=== PATIENT | male | born 1945 | race Caucasian/White ===

== ENCOUNTER 2017-03-23 17:22 | Inpatient (IN) | payer MEDICARE, OTHER ==
[~2017-03-23] VITALS: Ht 182.9 cm; Wt 123.3 kg
[~2017-03-23 17:22] MED LIST: ACET325 PO; ACTOS; ALBU90OI6 INH; AMLO5; AMLO5 PO; ASCO500; ASPI325 PO; ASPI81CH; ASPI81EC; ASPI81EC PO; ATEN50; ATOR10; AZIT250 PO; BENZ100A PO; BISOPROLOL 2.5 MG; BUME2 PO; BUPR150T2; CEFD300 PO; CEPH500 PO; CHOL10002 PO; CLOP75 PO; DOCU100; DOCU100 PO; DULO60 PO; ENAL10; ESOM20; FISH OIL 1,001000 MG PO; FISH1000 PO; FLUSAL2505; FLUSAL2505 INH; FURO40; FURO80; GABA100; GABA300; GABA400 PO; GABA800 PO; GUAI600T33 PO; HYDACE10B PO; HYDMOR8 PO; HYDROCODONE-CHLO5 ML PO; INS70/30I; INSR10I; INSULANI; INSULANI SUBQ; INSULANPEN SQ; IRON PO; Iron Supplemen325 MG PO; Isosorbide Mono60 MG PO; LACT10SY; LAVAP17G PO; LOSA25 MT; LOSA50 PO; LOVA20; LOVA20 PO; Lovastatin20 MG PO; METO100ER PO; METO50 PO; MORP15ER PO; MSM1000; NAPR220; NITR.4SL SL; Novolin R100 UNIT/M SC; OXYACE5T; OXYACE5T PO; OXYGEN; POTASSIUM CHLORIDE 10 MEQ; PRED20 PO; PSYL5.85P; QUIN200; RENAPLEX; TELM20 PO; TELM40; TEMA15; TIOT18; Ventolin Soln3 ML INH
[2017-03-23 18:16] LABS: BASOPHILS ABSOLUTE AUTO 0.03 K/mm3 (0.00-0.23); BASOPHILS PERCENT AUTO 0 % (0-2); EOSINOPHILS ABSOLUTE AUTO 0.08 K/mm3 (0.00-0.68); EOSINOPHILS PERCENT AUTO 0 % (0-6); Hematocrit 35.5 % (37.0-53.0); Hemoglobin 11.5 g/dL (13.5-17.5); IMMATURE GRAN ABSOLUTE AUTO 0.11 K/mm3 (0.00-0.10); IMMATURE GRAN PERCENT AUTO 1 % (0-1); LYMPHOCYTES ABSOLUTE AUTO 1.62 K/mm3 (0.84-5.20); LYMPHOCYTES PERCENT AUTO 8 % (21-46); MONOCYTES ABSOLUTE AUTO 1.54 K/mm3 (0.16-1.47); MONOCYTES PERCENT AUTO 8 % (4-13); Mean Corpuscular HGB 31.1 pg (26.0-34.0); Mean Corpuscular HGB Conc 32.4 g/dL (31.5-36.5); Mean Corpuscular Volume 96 fL (80-100); NEUTROPHILS ABSOLUTE AUTO 15.83 K/mm3 (1.96-9.15); NEUTROPHILS PERCENT AUTO 82 % (41-73); Platelet Count 150 K/mm3 (150-400); RDW Coefficient Variation 15.4 % (11.7-14.2); RDW Standard Deviation 54.7 fL (35.1-46.3); White Blood Cell Count 19.21 K/mm3 (4.00-11.30)
[2017-03-23 18:38] LABS: Albumin, Blood 3.1 g/dL (3.4-5.0); Albumin/Globulin Ratio 0.8 (0.8-1.8); Bilirubin, Total 0.5 mg/dL (0.1-1.0); Bun/Creatinine Ratio 38.8 (12.0-20.0); Calcium, Blood 8.4 mg/dL (8.5-10.1); Creatinine, Blood 1.52 mg/dL (0.60-1.20); Globulin, Blood 4.1 g/dL (2.2-4.0); Potassium, Blood 5.6 mmol/L (3.5-5.5); Total Protein, Blood 7.2 g/dL (6.4-8.2); Troponin I 0.046 ng/mL (0.000-0.040)
[2017-03-23 18:41] LABS: International Normalized Ratio 1.03; Prothrombin Time Results 10.7 Sec (9.7-11.5)
[2017-03-23] MEDS ORDERED: BUME2 PO (19:08)
[2017-03-23 19:39] LABS: Influenza A Negative (NEGATIVE); Influenza B Negative (NEGATIVE)
[2017-03-23 21:52] LABS: Source, Urine Clean Catch
[2017-03-23 21:54] LABS: Bilirubin, Urine Neg (Neg); Blood, Urine 1+ (Neg); Glucose Qualitative, Urine 1+ (Neg); Ketones, Urine Neg (Neg); Leukocyte Esterase, Urine Neg (Neg); Nitrite, Urine Neg (Neg); Protein, Urine 2+ (Neg); Urobilinogen, Urine NORM (Normal)
[2017-03-23 22:05] LABS: Appearance, Urine Clear (Clear); Bacteria Few /hpf; Color, Urine Yellow (P-Yellow); Red Blood Cells, Urine 0-2 /hpf (0-2); Squamous Epithelial Cells Not Seen /hpf (Few); White Blood Cells, Urine 0-2 /hpf (0-5)
[2017-03-23 22:06] LABS: Hyaline Casts 0-2 /lpf (0-2)
[2017-03-24 00:38] LABS: BASOPHILS ABSOLUTE AUTO 0.04 K/mm3 (0.00-0.23); BASOPHILS PERCENT AUTO 0 % (0-2); EOSINOPHILS ABSOLUTE AUTO 0.04 K/mm3 (0.00-0.68); EOSINOPHILS PERCENT AUTO 0 % (0-6); Hematocrit 33.1 % (37.0-53.0); Hemoglobin 10.7 g/dL (13.5-17.5); IMMATURE GRAN ABSOLUTE AUTO 0.13 K/mm3 (0.00-0.10); IMMATURE GRAN PERCENT AUTO 1 % (0-1); LYMPHOCYTES ABSOLUTE AUTO 1.63 K/mm3 (0.84-5.20); LYMPHOCYTES PERCENT AUTO 10 % (21-46); MONOCYTES PERCENT AUTO 7 % (4-13); Mean Corpuscular HGB Conc 32.3 g/dL (31.5-36.5); Mean Corpuscular Volume 96 fL (80-100); Mean Platelet Volume 11.3 fL (9.1-12.4); NEUTROPHILS ABSOLUTE AUTO 13.84 K/mm3 (1.96-9.15); NEUTROPHILS PERCENT AUTO 82 % (41-73); Platelet Count 133 K/mm3 (150-400); RDW Coefficient Variation 15.3 % (11.7-14.2); RDW Standard Deviation 53.8 fL (35.1-46.3); Red Blood Cell Count 3.45 M/mm3 (4.30-5.90); White Blood Cell Count 16.88 K/mm3 (4.00-11.30)
[2017-03-24 00:57] LABS: Bun/Creatinine Ratio 41.8 (12.0-20.0); Calcium, Blood 8.3 mg/dL (8.5-10.1); Creatinine, Blood 1.41 mg/dL (0.60-1.20); Potassium, Blood 4.5 mmol/L (3.5-5.5)
[2017-03-25 04:20] LABS: Magnesium, Blood 2.4 mg/dL (1.6-2.4)
[2017-03-25 04:22] LABS: Bun/Creatinine Ratio 42.4 (12.0-20.0); Calcium, Blood 8.7 mg/dL (8.5-10.1); Creatinine, Blood 1.32 mg/dL (0.60-1.20); Potassium, Blood 4.3 mmol/L (3.5-5.5)
[2017-03-26 05:48] LABS: Anion Gap 8 mmol/L (6-16); Blood Urea Nitrogen 57 mg/dL (8-24); Bun/Creatinine Ratio 51.4 (12.0-20.0); CO2, Blood 29 mmol/L (21-32); Chloride, Blood 99 mmol/L (98-108); Creatinine, Blood 1.11 mg/dL (0.60-1.20); Glomerular Filtration Rate >60 (60-); Glucose, Blood 183 mg/dL (70-99); Potassium, Blood 4.5 mmol/L (3.5-5.5); Sodium, Blood 136 mmol/L (136-145)
[2017-03-26] MEDS ORDERED: DULERA 200 MCG/13 GM INH (10:16)
[2017-03-26] MEDS ORDERED: Ferrous Sulfat325 M2 PO (10:46)
[2017-03-26] MEDS ORDERED: ALBU90OI INH (10:50)
[2017-03-26] MEDS ORDERED: NICO21TP TOP (10:52)
[2017-03-26] MEDS ORDERED: PRED10 PO (10:54)
[2017-03-26] MEDS ORDERED: TIOT18 INH (10:55)
[2017-03-26] MEDS ORDERED: LEVO750 PO (10:55)
== END 2017-03-26 12:02 | disposition home or self-care (01) | DRG 189 ==
LOC: ER 17:22 → PCU 20:12 → MEDS 20:12 → PCU 21:21 → MEDS 03-25 16:41
PROVIDERS: Emergency Medicine; Family Medicine; Internal Medicine
PROC: 5A09457 Assistance with Respiratory Ventilation, 24-96 Consecutive Hours, Continuous Positive Airway Pressure (ICD-10-PCS; principal; 2017-03-23)
DX: J96.21 Acute and chronic respiratory failure with hypoxia (principal); N17.9 Acute kidney failure, unspecified; J18.9 Pneumonia, unspecified organism; I13.0 Hypertensive heart and chronic kidney disease with heart failure and stage 1 through stage 4 chronic kidney disease, or unspecified chronic kidney disease; I50.32 Chronic diastolic (congestive) heart failure; E11.65 Type 2 diabetes mellitus with hyperglycemia; E87.5 Hyperkalemia; E87.1 Hypo-osmolality and hyponatremia; J44.0 Chronic obstructive pulmonary disease with (acute) lower respiratory infection; J44.1 Chronic obstructive pulmonary disease with (acute) exacerbation; D63.1 Anemia in chronic kidney disease; D72.829 Elevated white blood cell count, unspecified; E78.5 Hyperlipidemia, unspecified; F17.210 Nicotine dependence, cigarettes, uncomplicated; F32.9 Major depressive disorder, single episode, unspecified; F41.8 Other specified anxiety disorders; G47.33 Obstructive sleep apnea (adult) (pediatric); I65.29 Occlusion and stenosis of unspecified carotid artery; N18.3 Chronic kidney disease, stage 3 (moderate); R74.8 Abnormal levels of other serum enzymes; Z79.4 Long term (current) use of insulin; Z79.52 Long term (current) use of systemic steroids; Z95.1 Presence of aortocoronary bypass graft
CPT/HCPCS: 36415; 71046; 80048; 80053; 81001; 82947; 83036; 83605; 83735; 83880; 84484; 85025; 85610; 85730; 87040; 87070; 87077; 87086; 87186; 87205; 87804; 93005; 93010; 93306; 93970; 94640; 94644; 94761; 94762; 96374; 96375; 97116; 97161; 97530; 99285; G8978; G8979; J0456; J0696; J1650; J1815; J1940; J2916; J2930; J7030; J7050

== ENCOUNTER → 2018-02-21 | Outpatient (CLI) | payer MEDICARE, OTHER ==
[~2018-02-21] MED LIST changes: +ALBU90OI INH; +DULERA 200 MCG/13 GM INH; +Ferrous Sulfat325 M2 PO; +LEVO750 PO; +NICO21TP TOP; +PRED10 PO; +TIOT18 INH
[2018-02-21 14:34] LABS: Source, Urine Clean Catch
[2018-02-21 17:42] LABS: Bilirubin, Urine Neg (Neg); Blood, Urine Neg (Neg); Glucose Qualitative, Urine Neg (Neg); Ketones, Urine Neg (Neg); Leukocyte Esterase, Urine Neg (Neg); Nitrite, Urine Neg (Neg); Protein, Urine 1+ (Neg); Urobilinogen, Urine NORM (Normal)
[2018-02-21 18:01] LABS: Appearance, Urine Clear (Clear); Color, Urine Yellow (P-Yellow)
== END | disposition home or self-care (01) ==
LOC: LAB 14:31 → LAB SHORT 14:31 → LAB FUT 01-24 14:45
PROVIDERS: Internal Medicine
DX: N39.0 Urinary tract infection, site not specified (principal)
CPT/HCPCS: 81003